=== PATIENT | female | born 1955 | race Hispanic/Latino ===

== ENCOUNTER 2018-04-10 11:11 | Outpatient (CLI) | payer MEDICARE, OTHER | END 2018-04-10 11:12 | disposition home or self-care (01) | LOC: C.MAMMO 11:12 ==

== ENCOUNTER 2018-07-28 11:44 | Emergency (ER) | payer MEDICARE, OTHER | END 2018-07-28 14:45 | disposition home or self-care (01) | LOC: C.ER 11:44 ==